=== PATIENT | male | born 1960 | race Caucasian/White ===

== ENCOUNTER 2022-01-21 21:08 | Emergency (ER) | payer SELFPAY ==
[~2022-01-21] VITALS: Ht 172.7 cm; Wt 88.0 kg
[2022-01-21 23:18] VITALS: BP 110/71
== END 2022-01-21 23:22 | disposition left against medical advice (07) ==
LOC: ER 21:08
DX: R06.02 Shortness of breath (principal); R00.0 Tachycardia, unspecified; I10 Essential (primary) hypertension; Z98.61 Coronary angioplasty status; Z88.8 Allergy status to other drugs, medicaments and biological substances
CPT/HCPCS: 93005; 99283